=== PATIENT | female | born 1985 | race Caucasian/White ===

== ENCOUNTER → 2016-05-07 | Outpatient (CLI) | payer BC | END | disposition home or self-care (01) | LOC: LABWHC1 17:10 | PROVIDERS: ATTEND Internal Medicine Endocrinology, Diabetes & Metabolism | DX: E03.8 Other specified hypothyroidism (principal) | CPT/HCPCS: 36415; 84443 ==

== ENCOUNTER 2017-02-21 07:42 | Inpatient (IN) | payer BC ==
[2017-02-21] MEDS ORDERED: AMPICILLIN 2,000 MG in SODIUM CHLORIDE 0.9% 100 ML IVPB STA (08:32)
[2017-02-21] MEDS ORDERED: CITRIC ACID-SODIUM CITRATE 15 ML CUP PO ONE (08:35)
[2017-02-21 09:01] VITALS: BMI 34.2
[2017-02-21] MEDS: LACTATED RINGERS 1,000 ML IV SCH ×3 (09:01→18:06)
[2017-02-21 09:18] LABS: Basophils % (A) 0 %; Eosinophils # (A) 0.1 k/uL (0-0.7); Eosinophils % (A) 1 %; HGB 12.2 gm/dL (11.4-16.0); Lymphocytes # (A) 1.3 k/uL (1.0-4.8); Lymphocytes % (A) 12 %; MCHC 32.2 g/dL (31.0-37.0); MCV 93.2 fL (80.0-100.0); Mean Platelet Volume 8.1; Monocytes # (A) 0.4 k/uL (0-1.0); Monocytes % (A) 4 %; Neutrophils # (A) 8.9 k/uL (1.3-7.7); Neutrophils % (A) 82 %; Platelet Count 261 k/uL (150-450); RBC 4.08 m/uL (3.80-5.40); RDW 14.7 % (11.5-15.5); WBC 10.9 k/uL (3.8-10.6)
[2017-02-21] MEDS ORDERED: ceFAZolin IN SWFI 2 GM/20 ML SYRINGE IVP STA (11:21)
[2017-02-21] MEDS ORDERED: ePHEDrine SULFATE/0.9% NACL/PF 50 MG/5 ML SYRINGE IV ONE (12:07)
[2017-02-21] MEDS ORDERED: NALBUPHINE 10 MG/ML AMPUL ONE (12:07)
[2017-02-21] MEDS ORDERED: MORPHINE SULFATE (PF) 0.3 MG/0.3 ML SYR ONE (12:07)
[2017-02-21] MEDS ORDERED: ONDANSETRON 4 MG/2 ML VIAL ONE (12:07)
[2017-02-21] MEDS ORDERED: OXYTOCIN 10 UNIT/ML 1 ML VIAL ONE (12:07)
[2017-02-21] MEDS ORDERED: KETOROLAC 30 MG/ML 1 ML VIAL ONE (12:07)
--- NOTE | 2017-02-21 12:10 | P.HPOB ---
History of Present Illness H&P Date: 02/21/17 Chief Complaint: PROM, IUP @ 37 6/7 weeks GBS pos This is a 31-year-old 3 para 2001 at 37-6/7 weeks that was seen this morning in triage with complaints of spontaneous rupture of membranes. Fluid was noted to be clear and she states her membranes ruptured at 6:15 this morning. She is known GBS positive. She notes good movement and denies contractions at this time. On blood work her blood type is O+, rubella immune, RPR nonreactive, hepatitis B surface antigen negative, HIV negative, she did fail her 1 hour GDS but passed her 3 hour group beta strep was positive on 02/13/2017. Past Medical History Past Medical History: Thyroid Disorder Additional Past Medical History / Comment(s): GENITAL HERPES. RECENT VAGINAL YEAST INFECTION. History of Any Multi-Drug Resistant Organisms: None Reported Additional Past Surgical History / Comment(s): THYROIDECTOMY (LEFT IN 2004, RIGHT IN 2005), gallbladder 2010, c/s 2013, hysteroscopy 2015, wisdom teeth 2001 Past Anesthesia/Blood Transfusion Reactions: No Reported Reaction Past Psychological History: No Psychological Hx Reported Smoking Status: Never smoker Past Alcohol Use History: None Reported Past Drug Use History: None Reported - Past Family History Father Family Medical History: Cancer Additional Family Medical History / Comment(s): diverticulitis Mother Family Medical History: Diabetes Mellitus Brother(s) Family Medical History: Asthma Medications and Allergies Home Medications Medication Instructions Recorded Confirmed Type Levothyroxine Sodium [Synthroid] 1 tab PO DAILY 02/21/17 02/21/17 History Pnv,Calcium 72/Iron/Folic Acid 1 tab PO DAILY 02/21/17 02/21/17 History [ Plus Tablet] valACYclovir [Valtrex] 1 tab PO DAILY 02/21/17 02/21/17 History Allergies Allergy/AdvReac Type Severity Reaction Status Date / Time loratadine [From Claritin-D] AdvReac Unknown Verified 12/14/13 11:17 pseudoephedrine sulfate AdvReac Unknown Verified 12/14/13 11:17 [From Claritin-D] Exam Osteopathic Statement: *. No significant issues noted on an osteopathic structural exam other than those noted in the History and Physical/Consult. - Vital Signs Vital signs: Vital Signs Temp Pulse Resp BP Pulse Ox 02/21/17 08:26 97.2 F L 77 18 134/74 98 Intake and Output 02/20/17 02/21/17 02/21/17 22:59 06:59 14:59 Other: Weight 111.13 kg Patient Weight 02/22/17 06:59 Weight 111.13 kg - OBG Physical Exam Abdomen: Gravid Cervix: Grossly ruptured with clear fluid Uterus: enlarged Results Result Diagrams: 02/21/17 08:50 Abnormal Lab Results - Last 24 Hours (Table) 02/21/17 Range/Units 08:50 WBC 10.9 H (3.8-10.6) k/uL Neutrophils # 8.9 H (1.3-7.7) k/uL Assessment and Plan (1) Positive GBS test Current Visit: Yes Status: Acute Code(s): B95.1 - STREPTOCOCCUS, GROUP B, CAUSING DISEASES [facility]SD [facility] SNOMED Code(s): 2812218297305 (2) SROM (spontaneous rupture of membranes) Current Visit: Yes Status: Acute Code(s): WVZ5153 - SNOMED Code(s): 566192783 (3) Delivery by elective section Narrative/Plan: We'll proceed with elective repeat section as previously planned given HER-2 prior C-sections. Patient does elect a tubal ligation at this time as family status is complete. Risks of surgery were reviewed with the patient preoperatively including but not limited to infection bleeding damage to bladder or bowel ureteric/ injury. Patient states understanding and informed consent was obtained. Current Visit: No Status: Acute Code(s): O82 - ENCOUNTER FOR DELIVERY WITHOUT INDICATION SNOMED Code(s): 161292888
[2017-02-21] MEDS ORDERED: ONDANSETRON 4 MG/2 ML VIAL IVP PRN ×2 (12:39→13:07)
[2017-02-21] MEDS ORDERED: diphenhydrAMINE 50 MG/ML 1 ML VIAL IVP PRN ×3 (12:39→13:07)
[2017-02-21] MEDS ORDERED: MORPHINE SULFATE 5 MG/ML SYRINGE IVP PRN (12:39)
[2017-02-21] MEDS ORDERED: NALOXONE 0.4 MG/ML 1 ML VIAL IV PRN ×2 (12:39→13:07)
[2017-02-21] MEDS ORDERED: ACETAMINOPHEN TAB 325 MG TAB PO PRN (13:07)
[2017-02-21] MEDS ORDERED: ZOLPIDEM 5 MG TAB PO PRN (13:07)
[2017-02-21] MEDS ORDERED: Acetaminophen-Codeine 300-30mg TAB PO PRN (13:07)
[2017-02-21] MEDS ORDERED: ACETAMINOPHEN IV (For NPO) 1,000 MG in EMPTY BAG 1 BAG IVPB ONE (13:07)
[2017-02-21] MEDS ORDERED: diphenhydrAMINE 50 MG CAP PO PRN (13:07)
[2017-02-21] MEDS ORDERED: diphenhydrAMINE 25 MG CAP PO PRN (13:07)
[2017-02-21] MEDS ORDERED: METOCLOPRAMIDE 5 MG/ML 2 ML VIAL IVP PRN (13:07)
[2017-02-21] MEDS ORDERED: SIMETHICONE 80 MG CHEWABLE PO PRN (13:07)
[2017-02-21] MEDS ORDERED: LANOLIN CREAM 5 GM TUBE TOPICAL PRN (13:07)
--- NOTE | 2017-02-21 13:07 | P.OP ---
Date of Procedure: 02/21/17 Preoperative Diagnosis: IUP at 37-5/7 weeks, spontaneous rupture of membranes, group beta strep positive , history of 2, family status complete Postoperative Diagnosis: Same Procedure(s) Performed: Repeat section, bilateral tubal ligation Anesthesia: spinal Surgeon: Brielle Joshi Cyber Threat Analyst #1: Jamarcus Manzanares Estimated Blood Loss (ml): 500 IV fluids (ml): 1,300 Urine output (ml): 300 Pathology: none sent Condition: stable Disposition: observation Indications for Procedure: History of 2, family status complete Operative Findings: Normal uterus tubes and ovaries, extensive anterior adhesions Description of Procedure: Patient was taken to the operating room where spinal anesthesia was obtained by the anesthesia department. She was prepped and draped in the normal sterile fashion in the dorsal supine position. A Pfannenstiel skin incision was then carried through the underlying layer of fascia. The fascia wasn't incised in the midline and extended laterally sharply with scissors. The anterior aspect of the fascial incision was then grasped with Jeannine clamps, elevated and underlying rectus muscles dissected off sharply. Attention was then turned to the patient's inferior aspect of the fascial incision which was grasped with Nebo clamps, elevated and underlying rectus muscle was dissected off sharply once again. A peritoneal defect was noted and the incision was then extended laterally the peritoneum was opened. The bladder blade was then inserted into the pelvis and the bladder flap was then created using sharp dissection. A scalpel was then used to create a hysterotomy incision and the was delivered atraumatically and handed off to awaiting RN. time of 1230, weight 8-5, apgars of 9-10 at 1-5 mins respectively. The placenta was then removed manually and the uterus was cleared of all clots and debris. The uterus was then exteriorized. The uterine incision was then closed with 0 Vicryl in a running locked fashion. Hemostasis was appreciated. Attention was then turned to the patient's left fallopian tube which was grasped and clamped with a hemostat and tied off with plain gut 2. Metzenbaum scissors were then used to excise the portion of tube. Hemostasis was appreciated this was then repeated on the right fallopian tube. Hemostasis was appreciated throughout. Inspections of the patient's hysterotomy incision once again revealed hemostasis a small amount of bleeding was noted from the right fallopian tube this was then cauterized and hemostasis was appreciated. The uterus was then returned to the abdomen. The fascial incision was then closed with 0 Vicryl in a running fashion from one lateral edge the midline and the other lateral edge the midline. Once again the right fallopian tube site was visualized and hemostasis was appreciated. At this point the subcutaneous tissue was inspected and irrigated. It was closed with 3-0 Vicryl in 4 interrupted sutures. The skin was then closed with 4-0 Vicryl in a subcuticular fashion. Steri-Strips and sterile dressings were applied. All counts were correct 2 patient tolerated procedure well and was taken to the recovery room awake and in stable condition
[2017-02-21] MEDS ORDERED: OXYTOCIN 20 UNITS/1000 ML NS 1,000 ML IV SCH (13:15)
[2017-02-21] MEDS ORDERED: IBUPROFEN IV 800 MG in SODIUM CHLORIDE 0.9% 250 ML IV ONE (13:30)
[2017-02-21] MEDS: SENNOSIDES-DOCUSATE SODIUM 1 EACH TAB PO SCH (22:28)
[2017-02-22] MEDS: LEVOTHYROXINE 75 MCG TAB PO SCH ×2 (06:24→07:35)
[2017-02-22] MEDS: SENNOSIDES-DOCUSATE SODIUM 1 EACH TAB PO SCH ×2 (07:35→22:40)
[2017-02-22] MEDS: LACTATED RINGERS 1,000 ML IV SCH (07:36)
[2017-02-22] MEDS ORDERED: IBUPROFEN IV 800 MG in SODIUM CHLORIDE 0.9% 250 ML IV ONE ×2 (08:00→08:05)
--- NOTE | 2017-02-22 08:09 | P.PNOBGPC ---
Subjective - Subjective Principal diagnosis: Postop day 1 status post repeat with tubal ligation Interval history: Patient is doing well postoperatively. She is a billing and voiding without difficulty, she is tolerating a regular diet without nausea or vomiting, she states her pain is well controlled and is currently receiving IV Caldelor. She is breast-feeding without difficulty, lochia is minimal Patient reports: Reports appetite normal, Reports voiding normally, Reports pain well controlled, Reports ambulating normally : doing well Objective - Vital Signs Latest vital signs: Vital Signs Temp Pulse Resp BP Pulse Ox 02/22/17 07:00 16 02/22/17 05:00 16 02/22/17 04:00 97.6 F 70 16 115/62 02/22/17 03:00 16 02/22/17 01:00 16 02/22/17 00:00 98.3 F 67 16 118/64 02/21/17 23:00 16 02/21/17 21:00 16 02/21/17 20:00 98.2 F 70 16 134/61 99 02/21/17 19:00 16 98 02/21/17 17:00 16 02/21/17 15:39 16 98 02/21/17 15:30 96.5 F L 75 16 138/75 98 02/21/17 15:00 97.0 F L 72 18 123/66 98 02/21/17 14:30 97.5 F L 80 16 126/70 98 02/21/17 14:00 64 129/61 98 02/21/17 13:39 96.9 F L 64 16 118/60 98 02/21/17 13:30 96.9 F L 64 16 118/60 98 02/21/17 13:15 97.2 F L 80 18 124/65 95 02/21/17 13:00 96.5 F L 83 18 119/61 98 02/21/17 08:26 97.2 F L 77 18 134/74 98 Intake and Output 02/21/17 02/22/17 02/22/17 22:59 06:59 14:59 Intake Total 100 Output Total 400 120 600 Balance -400 -20 -600 Intake: Oral 100 Output: Urine 400 600 Uretheral (Pate) 400 Oral Regurgitation 120 Other: # Voids 1 - Exam Extremities: Present: normal Abdomen: Present: normal appearance Incision: Present: normal, dry, intact Uterus: Present: firm - Labs Labs: Abnormal Lab Results - Last 24 Hours (Table) 02/21/17 Range/Units 08:50 WBC 10.9 H (3.8-10.6) k/uL Neutrophils # 8.9 H (1.3-7.7) k/uL Assessment and Plan (1) Positive GBS test Current Visit: Yes Status: Acute Code(s): B95.1 - STREPTOCOCCUS, GROUP B, CAUSING DISEASES CL[facility]SD [facility] SNOMED Code(s): 0739890488564 (2) SROM (spontaneous rupture of membranes) Current Visit: Yes Status: Acute Code(s): IRY9854 - SNOMED Code(s): 105958698 (3) Delivery by elective section Narrative/Plan: We'll continue routine postoperative care. We will most likely plan for discharge tomorrow afternoon Current Visit: No Status: Acute Code(s): O82 - ENCOUNTER FOR DELIVERY WITHOUT INDICATION SNOMED Code(s): 630996550
[2017-02-22 08:19] LABS: Basophils % (A) 0 %; Eosinophils # (A) 0.1 k/uL (0-0.7); Eosinophils % (A) 1 %; HCT 34.6 % (34.0-46.0); HGB 10.9 gm/dL (11.4-16.0); Lymphocytes # (A) 0.9 k/uL (1.0-4.8); Lymphocytes % (A) 7 %; MCH 29.5 pg (25.0-35.0); MCHC 31.7 g/dL (31.0-37.0); MCV 93.3 fL (80.0-100.0); Mean Platelet Volume 7.8; Monocytes # (A) 0.6 k/uL (0-1.0); Monocytes % (A) 4 %; Neutrophils # (A) 11.2 k/uL (1.3-7.7); Neutrophils % (A) 86 %; Platelet Count 244 k/uL (150-450); RBC 3.71 m/uL (3.80-5.40); RDW 14.6 % (11.5-15.5); WBC 13.1 k/uL (3.8-10.6)
--- NOTE | 2017-02-22 08:23 | P.PN ---
Progress Note - Text Date:02/22 Time:645 Patient is status post . Patient seen this morning with VAS score of 2. c/o of pruritus, c/o mild nausea/vomiting, comfortable and doing well today.
[2017-02-22] MEDS ORDERED: MORPHINE SULFATE 2 MG/ML SYRINGE IVP PRN (08:59)
[2017-02-22] MEDS ORDERED: valACYclovir 500 MG TAB PO SCH ×2 (09:00→20:00)
[2017-02-22] MEDS ORDERED: PRENATAL VIT-IRON-FOLIC ACID 1 EACH CAP PO SCH ×2 (09:00→20:00)
[2017-02-22] MEDS: IBUPROFEN 600 MG TAB PO PRN (16:28)
[2017-02-22] MEDS: Acetaminophen-Codeine 300-30mg TAB PO PRN (22:36)
[2017-02-23] MEDS: IBUPROFEN 600 MG TAB PO PRN ×2 (02:36→12:22)
[2017-02-23 02:47] VITALS: PULSE 70
[2017-02-23] MEDS: LACTATED RINGERS 1,000 ML IV SCH ×2 (03:00)
[2017-02-23] MEDS: LEVOTHYROXINE 75 MCG TAB PO SCH (07:38)
[2017-02-23] MEDS: SENNOSIDES-DOCUSATE SODIUM 1 EACH TAB PO SCH (08:01)
[2017-02-23] MEDS: Acetaminophen-Codeine 300-30mg TAB PO PRN (08:09)
--- NOTE | 2017-02-23 09:13 | P.DS ---
Providers Date of admission: 02/21/17 07:42 Expected date of discharge: 02/23/17 Attending physician: Brielle Joshi Primary care physician: Stated None - Discharge Diagnosis(es) (1) Positive GBS test Current Visit: Yes Status: Acute (2) SROM (spontaneous rupture of membranes) Current Visit: Yes Status: Acute (3) Delivery by elective section This is a 31-year-old 3 para 2001 at 37-6/7 weeks that presented to labor and delivery on 111 with complaints of spontaneous rupture of membranes. She was scheduled for a repeat section secondary to prior C-sections and desired tubal ligation. was performed without difficulty later that afternoon after GBS prophylaxis was given. Patient's delivery was uncomplicated with a viable male infant delivered at 12:30 weight of 8 lbs. 5 oz., Apgars of 9 and 10 at 1 and 5 minutes respectively. Her course has been essentially uncomplicated. On this day #2 she is ambulating and voiding without difficulty. She is tolerating a regular diet without nausea or vomiting. She is breast-feeding without complaints. She states her lochia is minimal at this time. She wishes discharge home on this date Current Visit: No Status: Acute Plan - Discharge Summary Discharge Rx Participant: No New Discharge Prescriptions: No Action valACYclovir [Valtrex] 1 tab PO DAILY Levothyroxine Sodium [Synthroid] 1 tab PO DAILY Pnv,Calcium 72/Iron/Folic Acid [ Plus Tablet] 1 tab PO DAILY Discharge Medication List Levothyroxine Sodium [Synthroid] 1 tab PO DAILY 02/21/17 [History] Pnv,Calcium 72/Iron/Folic Acid [ Plus Tablet] 1 tab PO DAILY 02/21/17 [ History] valACYclovir [Valtrex] 1 tab PO DAILY 02/21/17 [History] Follow up Appointment(s)/Referral(s): Brielle Joshi DO [Doctor of Osteopathic Medicine] - 2 Weeks Patient Instructions/Handouts: (DC) Discharge Disposition: HOME SELF-CARE
[2017-02-23 09:52] VITALS: BP 128/68; RESP 17; TEMP 97.9
== END 2017-02-23 15:45 | disposition home or self-care (01) | DRG 765 ==
LOC: 4FBP 07:42
PROVIDERS: ADMIT Obstetrics & Gynecology Obstetrics; ATTEND Obstetrics & Gynecology Obstetrics
PROC: 0UB70ZZ Excision of Bilateral Fallopian Tubes, Open Approach (ICD-10-PCS; principal; 2017-02-21 12:49)
PROC: 10D00Z1 Extraction of Products of Conception, Low, Open Approach (ICD-10-PCS; principal; 2017-02-21 12:49)
DX: O34.219 Maternal care for unspecified type scar from previous cesarean delivery (principal); O98.32 Other infections with a predominantly sexual mode of transmission complicating childbirth; E89.0 Postprocedural hypothyroidism; L29.9 Pruritus, unspecified; Z37.0 Single live birth; O42.92 Full-term premature rupture of membranes, unspecified as to length of time between rupture and onset of labor; Z3A.37 37 weeks gestation of pregnancy; Z30.2 Encounter for sterilization; O99.824 Streptococcus B carrier state complicating childbirth; O99.284 Endocrine, nutritional and metabolic diseases complicating childbirth; Z79.890 Hormone replacement therapy; Z79.899 Other long term (current) drug therapy; A60.00 Herpesviral infection of urogenital system, unspecified
CPT/HCPCS: 85025; 86850; 86900; 86901; 88302; 88307

== ENCOUNTER → 2017-04-29 | Outpatient (CLI) | payer BC | END | disposition home or self-care (01) | LOC: LABWHC1 12:51 | PROVIDERS: ATTEND Internal Medicine Endocrinology, Diabetes & Metabolism | DX: E03.9 Hypothyroidism, unspecified (principal) | CPT/HCPCS: 36415; 84443 ==

== ENCOUNTER → 2018-01-01 | Outpatient (CLI) | payer BC ==
[2018-01-02 02:29] LABS: T4, Free (Free Thyroxine) 1.5 ng/dL (0.80-1.80)
== END | disposition home or self-care (01) ==
LOC: LABWHC1 14:06
PROVIDERS: ATTEND Internal Medicine Endocrinology, Diabetes & Metabolism
DX: E03.9 Hypothyroidism, unspecified (principal)
CPT/HCPCS: 36415; 84439; 84443

== ENCOUNTER → 2018-10-15 | Outpatient (CLI) | payer BC | LOC: LABWHC1 08:40 | PROVIDERS: ATTEND Internal Medicine Endocrinology, Diabetes & Metabolism | DX: E03.9 Hypothyroidism, unspecified (principal) | CPT/HCPCS: 36415; 84443 ==

== ENCOUNTER → 2020-03-10 | Outpatient (CLI) | payer BC ==
[2020-03-10 16:53] LABS: T4, Free (Free Thyroxine) 1.4 ng/dL (0.80-1.80)
== END | disposition home or self-care (01) ==
LOC: LABWHC1 09:31
PROVIDERS: ATTEND Internal Medicine Endocrinology, Diabetes & Metabolism
DX: E03.9 Hypothyroidism, unspecified (principal)
CPT/HCPCS: 36415; 84439; 84443

== ENCOUNTER 2020-05-01 05:38 | Emergency (ER) | payer BC ==
[2020-05-01] MEDS ORDERED: ONDANSETRON 4 MG/2 ML VIAL IVP STA (05:55)
[2020-05-01] MEDS ORDERED: SODIUM CHLORIDE 0.9% 1,000 ML IV STA (05:55)
[2020-05-01] MEDS ORDERED: MAG HYDROX/AL HYDROX/SIMETH 30 ML, HYOSCYAMINE ELIXIR 10 ML PO STA ×2 (06:12)
--- NOTE | 2020-05-01 06:15 | ED ---
Abdominal Pain HPI - General Chief Complaint: Abdominal Pain Stated Complaint: ABD Pain Time Seen by Provider: 05/01/20 05:55 Source: patient, RN notes reviewed Mode of arrival: ambulatory Limitations: no limitations - History of Present Illness Initial Comments: This a 35-year-old female presents emergency Department chief complaint of upper abdominal pain. Patient states he woke her up just before 4 AM this morning. Patient states constant throbbing, stabbing type pain. She states it does not radiate to her back no chest pain or shortness breath currently. Patient states that she doesn't she's having a gallbladder attack but states that she's had a prior cholecystectomy. Patient went of epigastric to left upper quadrant pain. No diarrhea no constipation patient did have some nausea episode of vomiting. Patient states she visits related to her pizza she last night. Patient states that she's had tubal ligation denies any other complaints. - Related Data Home Medications Medication Instructions Recorded Confirmed Levothyroxine Sodium [Synthroid] 150 mcg PO DAILY 02/21/17 05/01/20 Pnv,Calcium 72/Iron/Folic Acid 1 tab PO HS 02/21/17 05/01/20 [ Plus Tablet] Previous Rx's Medication Instructions Recorded Omeprazole [PriLOSEC] 40 mg PO DAILY #14 cap 05/01/20 Ondansetron Odt [Zofran Odt] 4 mg PO Q8HR PRN #10 tab 05/01/20 Allergies Allergy/AdvReac Type Severity Reaction Status Date / Time loratadine [From Claritin-D] AdvReac Dizzy Verified 05/01/20 08:16 pseudoephedrine sulfate AdvReac Dizzy Verified 05/01/20 08:16 [From Claritin-D] Review of Systems ROS Statement: Those systems with pertinent positive or pertinent negative responses have been documented in the HPI. ROS Other: All systems not noted in ROS Statement are negative. Past Medical History Past Medical History: Thyroid Disorder Additional Past Medical History / Comment(s): GENITAL HERPES. RECENT VAGINAL YEAST INFECTION. History of Any Multi-Drug Resistant Organisms: None Reported Additional Past Surgical History / Comment(s): THYROIDECTOMY (LEFT IN 2004, RIGHT IN 2005), gallbladder 2010, c/s 2013, hysteroscopy 2015, wisdom teeth 2001 Past Anesthesia/Blood Transfusion Reactions: No Reported Reaction Past Psychological History: No Psychological Hx Reported Smoking Status: Never smoker Past Alcohol Use History: None Reported Past Drug Use History: None Reported - Past Family History Father Family Medical History: Cancer Additional Family Medical History / Comment(s): diverticulitis Mother Family Medical History: Diabetes Mellitus Brother(s) Family Medical History: Asthma General Exam General appearance: alert, in no apparent distress Head exam: Present: atraumatic, normocephalic, normal inspection Eye exam: Present: normal appearance, PERRL, EOMI. Absent: scleral icterus, conjunctival injection, periorbital swelling ENT exam: Present: normal exam, normal oropharynx, mucous membranes moist Neck exam: Present: normal inspection, full ROM. Absent: tenderness, meningismus, lymphadenopathy Respiratory exam: Present: normal lung sounds bilaterally. Absent: respiratory distress, wheezes, rales, rhonchi, stridor Cardiovascular Exam: Present: regular rate, normal rhythm, normal heart sounds. Absent: systolic murmur, diastolic murmur, rubs, gallop, clicks GI/Abdominal exam: Present: soft, tenderness (Mild to moderate epigastric left lower quadrant tenderness), normal bowel sounds. Absent: distended, guarding, rebound, rigid Back exam: Absent: CVA tenderness (R), CVA tenderness (L) Neurological exam: Present: alert, oriented X3 Skin exam: Present: warm, dry, intact, normal color. Absent: rash Course Vital Signs 05/01/20 05:41 Temperature 97.4 F L Pulse Rate 65 Respiratory 19 Rate Blood Pressure 125/63 O2 Sat by Pulse 100 Oximetry Medical Decision Making - Medical Decision Making 35-year-old presented for abdominal pain CT shows evidence of jejunitis. Labs unremarkable. Patient's pain is improved. We discussed liquid diet close foll ow-up return parameters were discussed. - Lab Data Result diagrams: 05/01/20 06:06 05/01/20 06:06 Lab Results 05/01/20 05/01/20 05/01/20 Range/Units 06:06 06:06 06:06 WBC 9.6 (3.8-10.6) k/uL RBC 4.44 (3.80-5.40) m/uL Hgb 14.0 (11.4-16.0) gm/dL Hct 40.9 (34.0-46.0) % MCV 92.1 (80.0-100.0) fL MCH 31.4 (25.0-35.0) pg MCHC 34.1 (31.0-37.0) g/dL RDW 12.2 (11.5-15.5) % Plt Count 283 (150-450) k/uL MPV 8.0 Neutrophils % 73 % Lymphocytes % 17 % Monocytes % 6 % Eosinophils % 2 % Basophils % 1 % Neutrophils # 7.0 (1.3-7.7) k/uL Lymphocytes # 1.7 (1.0-4.8) k/uL Monocytes # 0.6 (0-1.0) k/uL Eosinophils # 0.2 (0-0.7) k/uL Basophils # 0.1 (0-0.2) k/uL Sodium (137-145) mmol/L Potassium (3.5-5.1) mmol/L Chloride (98-107) mmol/L Carbon Dioxide (22-30) mmol/L Anion Gap mmol/L BUN (7-17) mg/dL Creatinine (0.52-1.04) mg/dL Est GFR (CKD-EPI)AfAm (>60 ml/min/1.73 sqM) Est GFR (CKD-EPI)NonAf (>60 ml/min/1.73 sqM) Glucose (74-99) mg/dL Calcium (8.4-10.2) mg/dL Total Bilirubin (0.2-1.3) mg/dL AST (14-36) U/L ALT (4-34) U/L Alkaline Phosphatase (38-126) U/L Troponin I (0.000-0.034) ng/mL Total Protein (6.3-8.2) g/dL Albumin (3.5-5.0) g/dL Amylase (30-110) U/L Lipase (23-300) U/L Urine Color Yellow Urine Appearance Cloudy H (Clear) Urine pH 5.0 (5.0-8.0) Ur Specific [place] 1.024 (1.001-1.035) Urine Protein Trace H (Negative) Urine Glucose (UA) Negative (Negative) Urine Ketones Negative (Negative) Urine Blood Negative (Negative) Urine Nitrite Negative (Negative) Urine Bilirubin Negative (Negative) Urine Urobilinogen <2.0 (<2.0) mg/dL Ur Leukocyte Esterase Negative (Negative) Urine RBC 2 (0-5) /hpf Urine WBC 2 (0-5) /hpf Ur Squamous Epith Cells 9 H (0-4) /hpf Urine Bacteria Rare H (None) /hpf Hyaline Casts 1 (0-2) /lpf Urine Mucus Moderate H (None) /hpf Urine HCG, Qual Not Detected (Not Detectd) 05/01/20 05/01/20 Range/Units 06:06 06:06 WBC (3.8-10.6) k/uL RBC (3.80-5.40) m/uL Hgb (11.4-16.0) gm/dL Hct (34.0-46.0) % MCV (80.0-100.0) fL MCH (25.0-35.0) pg MCHC (31.0-37.0) g/dL RDW (11.5-15.5) % Plt Count (150-450) k/uL MPV Neutrophils % % Lymphocytes % % Monocytes % % Eosinophils % % Basophils % % Neutrophils # (1.3-7.7) k/uL Lymphocytes # (1.0-4.8) k/uL Monocytes # (0-1.0) k/uL Eosinophils # (0-0.7) k/uL Basophils # (0-0.2) k/uL Sodium 140 (137-145) mmol/L Potassium 3.7 (3.5-5.1) mmol/L Chloride 105 (98-107) mmol/L Carbon Dioxide 25 (22-30) mmol/L Anion Gap 10 mmol/L BUN 16 (7-17) mg/dL Creatinine 0.72 (0.52-1.04) mg/dL Est GFR (CKD-EPI)AfAm >90 (>60 ml/min/1.73 sqM) Est GFR (CKD-EPI)NonAf >90 (>60 ml/min/1.73 sqM) Glucose 136 H (74-99) mg/dL Calcium 9.6 (8.4-10.2) mg/dL Total Bilirubin 0.5 (0.2-1.3) mg/dL AST 21 (14-36) U/L ALT 30 (4-34) U/L Alkaline Phosphatase 55 (38-126) U/L Troponin I 0.022 (0.000-0.034) ng/mL Total Protein 7.3 (6.3-8.2) g/dL Albumin 4.4 (3.5-5.0) g/dL Amylase 99 (30-110) U/L Lipase 110 (23-300) U/L Urine Color Urine Appearance (Clear) Urine pH (5.0-8.0) Ur Specific [place] (1.001-1.035) Urine Protein (Negative) Urine Glucose (UA) (Negative) Urine Ketones (Negative) Urine Blood (Negative) Urine Nitrite (Negative) Urine Bilirubin (Negative) Urine Urobilinogen (<2.0) mg/dL Ur Leukocyte Esterase (Negative) Urine RBC (0-5) /hpf Urine WBC (0-5) /hpf Ur Squamous Epith Cells (0-4) /hpf Urine Bacteria (None) /hpf Hyaline Casts (0-2) /lpf Urine Mucus (None) /hpf Urine HCG, Qual (Not Detectd) - EKG Data -: EKG Interpreted by Me EKG Comments: EKG performed at 6:13 normal sinus rhythm with incomplete right bundle rate of 64. 174 QRS 118 QT/QTC 414/427 Disposition Clinical Impression: Jejunitis Disposition: HOME SELF-CARE Condition: Stable Instructions (If sedation given, give patient instructions): Enteritis (ED) Additional Instructions: Please return to the Emergency Department if symptoms worsen or any other concerns. Prescriptions: Omeprazole [PriLOSEC] 40 mg PO DAILY #14 cap Ondansetron Odt [Zofran Odt] 4 mg PO Q8HR PRN #10 tab PRN Reason: Nausea Is patient prescribed a controlled substance at d/c from ED?: No Referrals: Moises Woodard DO [Primary Care Provider] - 1-2 days Bertha Benjamin MD [STAFF PHYSICIAN] - 1-2 days Time of Disposition: 08:39
[2020-05-01 06:16] LABS: Basophils # (A) 0.1 k/uL (0-0.2); Basophils % (A) 1 %; Eosinophils # (A) 0.2 k/uL (0-0.7); Eosinophils % (A) 2 %; HCT 40.9 % (34.0-46.0); Lymphocytes # (A) 1.7 k/uL (1.0-4.8); Lymphocytes % (A) 17 %; MCH 31.4 pg (25.0-35.0); MCHC 34.1 g/dL (31.0-37.0); MCV 92.1 fL (80.0-100.0); Monocytes # (A) 0.6 k/uL (0-1.0); Monocytes % (A) 6 %; Neutrophils % (A) 73 %; Platelet Count 283 k/uL (150-450); RBC 4.44 m/uL (3.80-5.40); RDW 12.2 % (11.5-15.5); WBC 9.6 k/uL (3.8-10.6)
[2020-05-01 06:23] LABS: ALT 30 U/L (4-34); AST 21 U/L (14-36); African American GFR (CKD) >90 (>60 ml/min/1.73 sqM); Albumin 4.4 g/dL (3.5-5.0); Alkaline Phosphatase 55 U/L (38-126); Amylase 99 U/L (30-110); Anion Gap 10 mmol/L; Blood Urea Nitrogen 16 mg/dL (7-17); Calcium 9.6 mg/dL (8.4-10.2); Carbon Dioxide 25 mmol/L (22-30); Chloride 105 mmol/L (98-107); Glucose 136 mg/dL (74-99); Lipase 110 U/L (23-300); Non-African American GFR(CKD) >90 (>60 ml/min/1.73 sqM); Potassium 3.7 mmol/L (3.5-5.1); Sodium 140 mmol/L (137-145); Total Bilirubin 0.5 mg/dL (0.2-1.3); Total Protein 7.3 g/dL (6.3-8.2)
[2020-05-01 06:40] LABS: Appearance,Urine Cloudy (Clear); Bacteria,Urine Rare /hpf; Bilirubin,Urine Negative (Negative); Blood,Urine Negative (Negative); Color,Urine Yellow; Glucose,Urine (UA) Negative (Negative); Hyaline Casts,Urine 1 /lpf (0-2); Ketones,Urine Negative (Negative); Leukocyte Esterase,Urine Negative (Negative); Mucus,Urine Moderate /hpf; Nitrite,Urine Negative (Negative); Protein,Urine Trace (Negative); RBC,Urine 2 /hpf (0-5); Specific Gravity,Urine 1.024 (1.001-1.035); Squamous Epithelial Cell,Urine 9 /hpf (0-4); Urobilinogen,Urine <2.0 mg/dL (<2.0); WBC,Urine 2 /hpf (0-5)
[2020-05-01] MEDS ORDERED: KETOROLAC 15 MG/ML 1 ML VIAL IVP STA (07:17)
--- NOTE | 2020-05-01 08:27 | CT ---
EXAMINATION TYPE: CT abdomen pelvis w con DATE OF EXAM: 05/01/2020 COMPARISON: None INDICATION: Abdominal pain DLP: 1207.4 mGycm, Automated exposure control for dose reduction was used. CONTRAST: 100 ml mL of Isovue 300. Study performed without Oral Contrast TECHNIQUE: Axial images were obtained from above the diaphragm to the pubic rami in the axial plane a t 5 mm thick sections. Reconstructed images are reviewed on the computer in the coronal plane. FINDINGS: Limited CT sections are obtained the lung bases. The lung bases are clear. CT ABDOMEN: Liver: There is moderate fatty infiltration of liver. Spleen: Normal Pancreas: Normal Adrenal glands: The adrenal glands are normal. Gallbladder: Gallbladder is surgically absent Kidneys: No masses are evident. No hydronephrosis is present. No cysts are present. Delayed images were obtained through the kidneys, which remain unremarkable. Aorta: Normal Inferior vena cava: Normal. CT PELVIS: Proximal left upper quadrant jejunum is slightly prominent with some thickened bowel wall. Correlate for jejunitis. Adjacent inflammatory changes are identified. Distal small bowel loops have a normal c aliber. Colon appears normal the studies lateral contrast limits evaluation. Appendix: Not identified. No suspicious dilated tubular structures or inflammatory changes present. Urinary bladder: Normal. Genitourinary structures: Uterus is normal. There appears to be a 2.5 cm cyst on the anterior left ov kraig. Osseous structures: No suspicious lytic or sclerotic lesions. IMPRESSIONS: 1. Moderate fatty infiltration liver. 2. Thickened jejunum left upper quadrant. Correlate for jejunitis. 3. Left ovarian cyst. Follow-up ultrasound following the next normal menstrual period is recommended.
[2020-05-01] MEDS ORDERED: ACET/COD 300 MG/30 MG STARTER PACK 6 TAB BTL PO STA (08:39)
[2020-05-01 08:51] VITALS: BP 125/77; PULSE 69; RESP 18; TEMP 98.2
== END 2020-05-01 08:53 | disposition home or self-care (01) ==
LOC: EC 05:38
DX: K52.9 Noninfective gastroenteritis and colitis, unspecified (principal); Z79.899 Other long term (current) drug therapy
CPT/HCPCS: 36415; 93005; 80053; 82150; 83690; 84484; 85025; 81001; 81025; 74177; 99284; 96374; 96375; 96361; J2405; J1885; Q9967

== ENCOUNTER → 2021-05-11 | Outpatient (CLI) | payer BC ==
[2021-05-11 15:29] LABS: T4, Free (Free Thyroxine) 1.64 ng/dL (0.800-1.800)
== END | disposition home or self-care (01) ==
LOC: LABWHC1 08:31
PROVIDERS: ATTEND Internal Medicine Endocrinology, Diabetes & Metabolism
DX: E89.0 Postprocedural hypothyroidism (principal)
CPT/HCPCS: 36415; 84439; 84443

== ENCOUNTER → 2022-05-22 | Outpatient (CLI) | payer BC ==
[2022-05-22 16:14] LABS: T4, Free (Free Thyroxine) 1.53 ng/dL (0.800-1.800)
== END | disposition home or self-care (01) ==
LOC: LABWHC1 08:45
PROVIDERS: ATTEND Internal Medicine Endocrinology, Diabetes & Metabolism
DX: E89.0 Postprocedural hypothyroidism (principal)
CPT/HCPCS: 36415; 84439; 84443

== ENCOUNTER → 2023-05-11 | Outpatient (CLI) | payer BC | END | disposition home or self-care (01) | LOC: LABWHC1 11:31 | PROVIDERS: ATTEND Internal Medicine Endocrinology, Diabetes & Metabolism | DX: E89.0 Postprocedural hypothyroidism (principal) | CPT/HCPCS: 36415; 84443 ==

== ENCOUNTER 2023-10-10 11:57 | Emergency (ER) | payer BC ==
[2023-10-10 12:09] VITALS: RESP 18
--- NOTE | 2023-10-10 13:03 | ED ---
Animal Bite HPI - General Chief Complaint: Animal Bite Stated Complaint: cat bite Time Seen by Provider: 10/10/23 13:01 Source: patient, RN notes reviewed, old records reviewed Mode of arrival: ambulatory Limitations: no limitations - History of Present Illness Initial Comments: This is a 38 female to the ER for evaluation of cat bite patient did suffer from a significant cat bite to her index finger left index finger severe pain decreased range of motion severe swelling. Patient was seen in urgent care yesterday started antibiotic x 1 did not take her antibiotic this morning patient has no other complaints no fevers and no other injury noted. This was her own cat but is a domesticated cat with shots up-to-date MD Complaint: animal bite, animal-related injury -: days(s) (2) Location: chest Animal: cat Description: household pet Mechanism: bite Pain Description: sharp Severity scale (1-10): 3 Context: unprovoked Associated Symptoms: erythema Treatments Prior to Arrival: FB removal (0) - Related Data Home Medications Medication Instructions Recorded Confirmed Levothyroxine Sodium [Synthroid] 150 mcg PO DAILY 02/21/17 05/01/20 Pnv,Calcium 72/Iron/Folic Acid 1 tab PO HS 02/21/17 05/01/20 [ Plus Tablet] Previous Rx's Medication Instructions Recorded Omeprazole [PriLOSEC] 40 mg PO DAILY #14 cap 05/01/20 Ondansetron Odt [Zofran Odt] 4 mg PO Q8HR PRN #10 tab 05/01/20 Allergies Allergy/AdvReac Type Severity Reaction Status Date / Time loratadine [From Claritin-D] AdvReac Dizzy Verified 10/10/23 12:08 pseudoephedrine sulfate AdvReac Dizzy Verified 10/10/23 12:08 [From Claritin-D] Review of Systems ROS Statement: Those systems with pertinent positive or pertinent negative responses have been documented in the HPI. ROS Other: All systems not noted in ROS Statement are negative. Past Medical History Past Medical History: Thyroid Disorder Additional Past Medical History / Comment(s): GENITAL HERPES. RECENT VAGINAL YEAST INFECTION. History of Any Multi-Drug Resistant Organisms: None Reported Additional Past Surgical History / Comment(s): THYROIDECTOMY (LEFT IN 2004, RIGHT IN 2005), gallbladder 2010, c/s 2013, hysteroscopy 2015, wisdom teeth 2001 Past Anesthesia/Blood Transfusion Reactions: No Reported Reaction Past Psychological History: No Psychological Hx Reported Smoking Status: Never smoker Past Alcohol Use History: None Reported Past Drug Use History: None Reported - Past Family History Father Family Medical History: Cancer Additional Family Medical History / Comment(s): diverticulitis Mother Family Medical History: Diabetes Mellitus Brother(s) Family Medical History: Asthma General Exam Limitations: no limitations General appearance: alert, in no apparent distress Head exam: Present: atraumatic, normocephalic, normal inspection Eye exam: Present: normal appearance, PERRL, EOMI. Absent: scleral icterus, conjunctival injection, periorbital swelling ENT exam: Present: normal exam, mucous membranes moist Neck exam: Present: normal inspection. Absent: tenderness, meningismus, lymphadenopathy Respiratory exam: Present: normal lung sounds bilaterally. Absent: respiratory distress, wheezes, rales, rhonchi, stridor Cardiovascular Exam: Present: regular rate, normal rhythm, normal heart sounds. Absent: systolic murmur, diastolic murmur, rubs, gallop, clicks GI/Abdominal exam: Present: soft, normal bowel sounds. Absent: distended, tenderness, guarding, rebound, rigid Extremities exam: Present: normal inspection, full ROM, normal capillary refill. Absent: tenderness, pedal edema, joint swelling, calf tenderness Back exam: Present: normal inspection Neurological exam: Present: alert, oriented X3, CN II-XII intact Psychiatric exam: Present: normal affect, normal mood Skin exam: Present: warm, dry, intact, normal color. Absent: rash Course Vital Signs 10/10/23 10/10/23 12:06 13:31 Temperature 98 F 97.9 F Pulse Rate 81 76 Respiratory 18 18 Rate Blood Pressure 144/84 136/76 O2 Sat by Pulse 99 99 Oximetry - Reevaluation(s) Reevaluation #1: 10/10/23 15:17 Medical records reviewed Reevaluation #2: 10/10/23 15:17 Patient's symptoms are relatively unchanged Reevaluation #3: 10/10/23 15:17 Patient informed of results and questions answered Reevaluation #4: Was pt. sent in by a medical professional or institution (, PA, BEATING MACHINE OPERATOR, urgent care, hospital, or alf...) When possible be specific @ -no Did you speak to anyone other than the patient for history (EMS, parent, family, police, friend...)? What history was obtained from this source @ -no Did you review nursing and triage notes (agree or disagree)? Why? @ -agree Are old charts reviewed (outside hosp., previous admission, EMS record, old EKG, old radiological studies, urgent care reports/EKG's, alf records)? Report findings @ -yes Differential Diagnosis (chest pain, altered mental status, abdominal pain women, abdominal pain men, vaginal bleeding, weakness, fever, dyspnea, syncope, headache, dizziness, GI bleed, back pain, seizure, CVA, palpatations, mental health, musculoskeletal)? @ -prior EKG interpreted by me (3pts min.). @ -no X-rays interpreted by me (1pt min.). @ -no CT interpreted by me (1pt min.). @ -no U/S interpreted by me (1pt. min.). @ -no What testing was considered but not performed or refused? (CT, X-rays, U/S, labs)? Why? @ -none What meds were considered but not given or refused? Why? @ -none Did you discuss the management of the patient with other professionals (professionals i.e. , PA, BEATING MACHINE OPERATOR, lab, RT, psych nurse, social media executive, pit operator, teacher, airline pilot/first officer, machine adjuster leader case trim)? Give summary @ -no Was smoking cessation discussed for >3mins.? @ -no Was critical care preformed (if so, how long)? @ -no Were there social determinants of health that impacted care today? How? (Homelessness, low income, unemployed, alcoholism, drug addiction, transportation, low edu. Level, literacy, decrease access to med. care, nursing home, rehab)? @ -none Was there de-escalation of care discussed even if they declined (Discuss DNR or withdrawal of care, Hospice)? DNR status @ -no What co-morbidities impacted this encounter? (DM, HTN, Smoking, COPD, CAD, Cancer, CVA, ARF, Chemo, Hep., AIDS, mental health diagnosis, sleep apnea, morbid obesity)? @ -none Was patient admitted / discharged? Hospital course, mention meds given and route, prescriptions, significant lab abnormalities, going to OR and other pertinent info. @ - 38 Female in the ER patient presents today for evaluation of cat bite this was patient's own cat significant bite wounds to the left index finger, severe swelling started antibiotics yesterday with no real improvement at this point. Patient wanted a second evaluation Discharge Undiagnosed new problem with uncertain prognosis? @ -no Drug Therapy requiring intensive monitoring for toxicity (Heparin, Nitro, Insulin, Cardizem)? @ -no Were any procedures done? @ -no Diagnosis/symptom? @ -Cat bite Acute, or Chronic, or Acute on Chronic? @ -Acute Uncomplicated (without systemic symptoms) or Complicated (systemic symptoms)? @ -Complicated Side effects of treatment? @ -no Exacerbation, Progression, or Severe Exacerbation? @ -exacerbation Poses a threat to life or bodily function? How? (Chest pain, [place], MA, pneumonia, PE, COPD, DKA, ARF, appy, cholecystitis, CVA, Diverticulitis, Homicidal, Suicidal, threat to staff... and all critical care pts) @ -yes with significant infection Medical Decision Making - Medical Decision Making 38 Female in the ER patient presents today for evaluation of cat bite this was patient's own cat significant bite wounds to the left index finger, severe swelling started antibiotics yesterday with no real improvement at this point. Patient wanted a second evaluation Disposition Clinical Impression: Cat bite, Bite by animal Disposition: HOME SELF-CARE Condition: Good Instructions (If sedation given, give patient instructions): Animal Bite (ED) Is patient prescribed a controlled substance at d/c from ED?: No Referrals: Moises Woodard DO [Primary Care Provider] - 1-2 days Time of Disposition: 13:00
[2023-10-10 13:33] VITALS: BP 136/76; PULSE 76; TEMP 97.9
== END 2023-10-10 16:48 | disposition home or self-care (01) ==
LOC: EC 11:57
CPT/HCPCS: 99283

== ENCOUNTER → 2024-07-27 | Outpatient (CLI) | payer BC | END | disposition home or self-care (01) | LOC: LABWHC1 08:51 | PROVIDERS: ATTEND Internal Medicine Endocrinology, Diabetes & Metabolism | DX: E89.0 Postprocedural hypothyroidism (principal) | CPT/HCPCS: 36415; 84443 ==